=== PATIENT | female | born 1995 | race African-American/Black ===

== ENCOUNTER 2016-12-28 12:17 | Observation (INO) | payer MEDICAID ==
[~2016-12-28] VITALS: Ht 162.6 cm; Wt 50.0 kg
[~2016-12-28 12:17] MED LIST: DEPO150I IM; FERRTAB2
[2016-12-28 12:18] VITALS: BP 104/51; PULSE 129; RESP 20; TEMP 100.8; O2SAT 99
--- NOTE | 2016-12-28 12:43 | PD ---
Physical Exam Time Seen by Provider: 12:41 Narrative 21 y/o female here for evaluation of nausea, weakness, diarrhea, headache, fever for 2-3 days. Vital signs reviewed. Seen at triage desk. Awaiting bed placement. Data Data Last Documented VS Vital Signs Date Time Temp Pulse Resp B/P Pulse Ox O2 Delivery O2 Flow Rate FiO2 12/28/16 12:18 100.8 129 20 104/51 99 Room Air [facility] Medical Record Reviewed: Yes Supervised Visit with MAXWELL: Mitchell Osborn Dec 28, 2016 12:43
[2016-12-28] MEDS ORDERED: KETOROLAC TROMETHAMINE 30 MG/ML (IVP) VIAL IV PUSH ONE (14:30)
[2016-12-28] MEDS ORDERED: SODIUM CHLOR 0.9% 1000 ML INJ 1,000 ML IV ONE ×2 (14:30→15:45)
[2016-12-28] MEDS ORDERED: ACETAMINOPHEN 500 MG CPLT PO ONE (14:45)
[2016-12-28 15:21] LABS: AUTOMATED NEUTROPHIL # 10.4 TH/MM3 (1.8-7.7); BASOPHIL % 0.2 % (0.0-2.0); HEMATOCRIT 38.4 % (35.0-46.0); HEMO FLAGS DIFF FINAL; LYMPH % 10.2 % (9.0-44.0); LYMPHOCYTE # 1.3 TH/MM3 (1.0-4.8); MEAN CELL VOLUME 95.2 FL (80.0-100.0); MEAN CORPUSCULAR HEMOGLOBIN 31.4 PG (27.0-34.0); NEUT % 81.6 % (16.0-70.0); PLATELET COUNT 191 TH/MM3 (150-450); RED BLOOD COUNT 4.03 MIL/MM3 (4.00-5.30); RED CELL DISTRIBUTION WIDTH 13.2 % (11.6-17.2); WHITE BLOOD COUNT 12.7 TH/MM3 (4.0-11.0)
[2016-12-28 15:34] LABS: ANION GAP 9 MEQ/L (5-15); AST (GOT) 10 U/L (15-37); BICARBONATE 23.8 MEQ/L (21.0-32.0); BLOOD UREA NITROGEN 12 MG/DL (7-18); CHLORIDE 100 MEQ/L (98-107); GLOMERULAR FILTRATION RATE 105 ML/MIN (>89); POTASSIUM 3.4 MEQ/L (3.5-5.1); SODIUM (NA) 133 MEQ/L (136-145)
[2016-12-28 15:38] LABS: ALKALINE PHOSPHATASE 60 U/L (45-117); ALT (GPT) 10 U/L (10-53); TOTAL BILIRUBIN ADULT 0.7 MG/DL (0.2-1.0)
[2016-12-28 15:45] VITALS: TEMP 102.7
--- NOTE | 2016-12-28 16:41 | PD ---
HPI Chief Complaint: Cold / Flu Symptoms Time Seen by Provider: 13:52 Travel History International Travel<30 days: No Contact w/Intl Traveler<30days: No Traveled to known affect area: No History of Present Illness HPI Patient is here because she's had headache and significant sore throat for a few days. SHe has also had fevers up to 104. She is having difficulty swallowing but no trismus. She feels like no matter how much she drinks she just can't get enough to drink. She has not had vomiting or diarrhea. No abdominal pain. She is having no otalgia or rhinorrhea or cough. No flank pain. She denies being although she has a son at home who is 8 months old. He is not sick. No dysuria or hematuria. No syncope but she is dizzy. No drug allergies and she is not currently on any medications. No history of seizures or drooling or stridor. No hot potato voice. No difficulty breathing. History Past Medical History Medical History: Denies Significant Hx Cardiovascular Problems: No Chemotherapy: No Cerebrovascular Accident: No Diabetes: No Hearing: No Respiratory: No Vision or Eye Problem: No ?: Not LMP: 11/26/16 : 2 : 1 Past Surgical History Surgical History: No Previous Surgery Hysterectomy: No Social History Tobacco Use in Home: No Alcohol Use: No Tobacco Use: No Substance Use: No Allergies-Medications (Allergen,Severity, Reaction): Coded Allergies: No Known Allergies (Unverified , 12/28/16) Reported Meds & Prescriptions Reported Meds & Active Scripts Active No Active Prescriptions or Reported Medications ROS Except as stated in HPI: all other systems reviewed are Neg Physical Exam Narrative GENERAL APPEARANCE: The patient is a well-developed, well-nourished, child in no acute distress. Tired appearing and dehydrated appearing SKIN: Skin is warm and dry without erythema, swelling or exudate. There is good turgor. No tenting. HEENT: Throat is clear with erythema,no swelling and significant exudate. Mucous membranes are dry Uvula is midline. Airway is patent. The pupils are equal, round and reactive to light. Extraocular motions are intact. No drainage or injection. The ears show bilateral tympanic membranes without erythema, dullness or loss of landmarks. No perforation. NECK: Supple and nontender with full range of motion without discomfort. No meningeal signs. Large and angry anterior cervical lymphadenopathy LUNGS: Equal and bilateral breath sounds without wheezes, rales or rhonchi. CHEST: The chest wall is without retractions or use of accessory muscles. HEART: Has a tachycardic rate and rhythm without murmur, gallops, click or rub. ABDOMEN: Soft, nontender with positive active bowel sounds. No rebound tenderness. Splenomegaly present. No hepatomegaly EXTREMITIES: Without cyanosis, clubbing or edema. Equal 2+ distal pulses and 2 second capillary refill noted. NEUROLOGIC: The patient is alert, aware, and appropriately interactive with parent and with examiner. The patient moves all extremities with normal muscle strength. Normal muscle tone is noted. Normal coordination is noted. Data Data Last Documented VS Vital Signs Date Time Temp Pulse Resp B/P Pulse Ox O2 Delivery O2 Flow Rate FiO2 12/28/16 18:27 98.7 80 20 98/55 100 Room Air Orders C-Reactive Protein (Crp) (12/28/16 14:20) Complete Blood Count With Diff (12/28/16 14:20) Comprehensive Metabolic Panel (12/28/16 14:20) Monoscreen (12/28/16 14:20) Urinalysis - C+S If Indicated (12/28/16 14:20) Ua Includes Microscopic (12/28/16 14:20) Urine Culture (12/28/16 14:20) Blood Culture (12/28/16 14:20) Group A Rapid Strep Screen (12/28/16 14:20) Pediatric Rapid Resp Ag Panel (12/28/16 14:20) Iv Access Insert/Monitor (12/28/16 14:20) Sodium Chlor 0.9% 1000 Ml Inj (Ns 1000 M (12/28/16 14:30) Ketorolac Inj (Toradol Inj) (12/28/16 14:30) Familia-Martin Virus Ab Eval (12/28/16 14:26) Cmv Dna Pcr Quantitative (12/28/16 14:26) Ed Urine Pregnancytest Poc (12/28/16 14:26) Acetaminophen (Tylenol) (12/28/16 14:45) Ct Soft Tiss Neck W Iv Cont (12/28/16 ) Sodium Chlor 0.9% 1000 Ml Inj (Ns 1000 M (12/28/16 15:45) Strep Culture (Group A) (12/28/16 14:35) Clindamycin Inj (Cleocin Inj) (12/28/16 16:45) Iohexol 350 Inj (Omnipaque 350 Inj) (12/28/16 17:54) Dexamethasone Inj (Decadron Inj) (12/28/16 18:45) Admit Order (Ed Use Only) (12/28/16 20:35) Labs Laboratory Tests Test 12/28/16 12/28/16 14:50 16:45 White Blood Count 12.7 TH/MM3 Red Blood Count 4.03 MIL/MM3 Hemoglobin 12.6 GM/DL Hematocrit 38.4 % Mean Corpuscular Volume 95.2 FL Mean Corpuscular Hemoglobin 31.4 PG Mean Corpuscular Hemoglobin 33.0 % Concent Red Cell Distribution Width 13.2 % Platelet Count 191 TH/MM3 Mean Platelet Volume 8.8 FL Neutrophils (%) (Auto) 81.6 % Lymphocytes (%) (Auto) 10.2 % Monocytes (%) (Auto) 8.0 % Eosinophils (%) (Auto) 0.0 % Basophils (%) (Auto) 0.2 % Neutrophils # (Auto) 10.4 TH/MM3 Lymphocytes # (Auto) 1.3 TH/MM3 Monocytes # (Auto) 1.0 TH/MM3 Eosinophils # (Auto) 0.0 TH/MM3 Basophils # (Auto) 0.0 TH/MM3 CBC Comment DIFF FINAL Differential Comment Sodium Level 133 MEQ/L Potassium Level 3.4 MEQ/L Chloride Level 100 MEQ/L Carbon Dioxide Level 23.8 MEQ/L Anion Gap 9 MEQ/L Blood Urea Nitrogen 12 MG/DL Creatinine 0.82 MG/DL Estimat Glomerular Filtration 105 ML/MIN Rate Random Glucose 124 MG/DL Calcium Level 9.0 MG/DL Total Bilirubin 0.7 MG/DL Aspartate Amino Transf 10 U/L (AST/SGOT) Alanine Aminotransferase 10 U/L (ALT/SGPT) Alkaline Phosphatase 60 U/L C-Reactive Protein 13.10 MG/DL Total Protein 9.0 GM/DL Albumin 3.6 GM/DL Monoscreen NEG Familia-Martin Virus Capsid Ag Positive IgG Ab Familia-Martin Virus Capsid Ag Negative IgM Ab Familia-Martin Nuclear Antigen Positive Familia-Martin Virus . Interpretation Urine Color YELLOW Urine Turbidity HAZY Urine pH 6.5 Urine Specific [place] 1.034 Urine Protein 100 mg/dL Urine Glucose (UA) NEG mg/dL Urine Ketones 80 mg/dL Urine Occult Blood NEG Urine Nitrite NEG Urine Bilirubin NEG Urine Urobilinogen LESS THAN 2.0 MG/DL Urine Leukocyte Esterase SMALL Urine RBC 1 /hpf Urine WBC 12 /hpf Urine Squamous Epithelial 9 /hpf Cells Urine Amorphous Sediment RARE Urine Bacteria MANY /hpf Urine Mucus MANY /lpf Microscopic Urinalysis Comment CULTURE INDICATED MDM Medical Decision Making Medical Screen Exam Complete: Yes Emergency Medical Condition: Yes Medical Record Reviewed: Yes Differential Diagnosis Viral pharyngitis Bacterial pharyngitis Tonsillitis Dehydration Mononucleosis EBV versus CMV Narrative Course Patient is here because she is having high fever and significant sore throat for a couple days. On, Exam she was found to have an exudative pharyngitis. Her CRP was very elevated. Rapid strep was negative as well as rapid Gallia. Liver functions were not elevated. Her white count was elevated with a left shift. She was given Toradol and Tylenol for pain. A CT scan of the neck was ordered to rule out peritonsillar abscess. She was given 2 L of normal saline. Care was transferred to . Scripts No Active Prescriptions or Reported Meds Jeanne Karu MD Dec 28, 2016 16:41
[2016-12-28] MEDS ORDERED: CLINDAMYCIN INJ 600 MG in SODIUM CHLORIDE 0.9% INJ 100 ML IV ONE (16:45)
[2016-12-28 17:17] LABS: BACTERIA, URINE MANY /hpf; BLOOD, URINE NEG (NEG); COMMENT (UR) CULTURE INDICATED; CULTURE IF INDICATED CULTURE INDICATED; GLUCOSE,URINE NEG (NEG); KETONE, URINE 80 mg/dL (NEG); MUCUS URINE MANY /lpf (OCC); NITRITE,URINE NEG (NEG); PH, URINE 6.5 (5.0-8.5); SQUAMOUS EPITHELIAL CELL URINE 9 /hpf (0-5); URINE COLOR YELLOW (YELLW/STRAW)
[2016-12-28] MEDS ORDERED: IOHEXOL 350 MG/ML 10 ML VIAL (for RAD DIAG) IV ONE (17:54)
--- NOTE | 2016-12-28 18:25 | RADRPT ---
EXAM DATE/TIME: 12/28/2016 17:45 [place] COMPARISON: No previous studies available for comparison. INDICATIONS : Sore throat, difficulty swallowing, fevers; evaluate for peritonsilar abscess. IV CONTRAST: 75 cc Omnipaque 350 (iohexol) IV RADIATION DOSE: 11.74 CTDIvol (mGy) MEDICAL HISTORY : None SURGICAL HISTORY : None. ENCOUNTER: Initial ACUITY: 1 week PAIN SCALE: 5/10 LOCATION: neck TECHNIQUE: Volumetric scanning of the neck was performed. Using automated exposure control and adjustment of th e mA and/or kV according to patient size, radiation dose was kept as low as reasonably achievable to obtain optimal diagnostic quality images. DICOM format image data is available electronically for r eview and comparison. FINDINGS: NASOPHARYNX: The nasopharyngeal airway has a normal configuration. No mucosal thickening or mass is seen. OROPHARYNX: There is enlargement of the palate seen tonsils bilaterally. They nearly approximate one another in t he midline. There is circumferential wall thickening of the oropharynx. There is narrowing of the lum en of the oropharynx. No discrete abscess observed. A tongue ring is noted. The intrinsic muscles of the tongue are symmetric. LARYNX: The supraglottic, glottic, and infraglottic structures are intact. PARAPHARYNGEAL: The parapharyngeal space is intact. SALIVARY GLANDS: The parotid and submandibular glands are intact. LYMPH NODES: No enlarged or necrotic-appearing nodes. THYROID: Homogeneous enhancement without evidence of nodule. BONES: Unremarkable. CONCLUSION: 1. Significant edema involving the wall of the oropharynx as well as enlargement of the palatine tons ils which nearly approximate one another in the midline. This does narrow the lumen of the oropharynx . No abscess observed. Rober Gordon Jr., MD on December 28, 2016 at 18:18 Board Certified Radiologist. This report was verified electronically.
[2016-12-28 18:27] VITALS: BP 98/55; PULSE 80; RESP 20; TEMP 98.7; O2SAT 100
[2016-12-28] MEDS ORDERED: DEXAMETHASONE SOD PHOS 4 MG/ML VIAL IV PUSH ONE (18:45)
[2016-12-28] MEDS ORDERED: PANTOPRAZOLE SOD 40 MG DELAYED RELEASE TAB PO ONE (21:00)
[2016-12-28] MEDS ORDERED: NALOXONE HCL 0.4 MG/ML AMP IV PRN (21:00)
[2016-12-28] MEDS ORDERED: SODIUM CHLORIDE 0.9% FLUSH 10 ML FLUSH IV FLUSH PRN (21:00)
[2016-12-28] MEDS ORDERED: KETOROLAC TROMETHAMINE 30 MG/ML (IVP) VIAL IV PUSH PRN (21:00)
[2016-12-28] MEDS: SODIUM CHLORIDE 0.9% FLUSH 10 ML FLUSH IV FLUSH SCH (21:08)
[2016-12-28 23:50] VITALS: BP 99/62; PULSE 75; RESP 20; TEMP 98.7; O2SAT 100
[2016-12-29] VITALS (7 sets, daily range): BP systolic 97–110; BP diastolic 53–73; PULSE 62–96; RESP 14–18; TEMP 97.5–98.6; O2SAT 97–100
[2016-12-29] MEDS: DEXAMETHASONE SOD PHOS 4 MG/ML VIAL IV PUSH SCH ×4 (01:00→17:45)
[2016-12-29 01:11] LABS: EBV VCA IgM Negative (Negative)
[2016-12-29] MEDS: CLINDAMYCIN INJ 900 MG in SODIUM CHLORIDE 0.9% INJ 100 ML IV SCH ×4 (01:27→17:46)
--- NOTE | 2016-12-29 02:24 | PD ---
Physical Exam Time Seen by Provider: 18:30 Narrative GENERAL APPEARANCE: The patient is a well-developed, well-nourished child in no acute distress. She is pink, alert and speaking clearly. SKIN: Skin is warm and dry without rashes. There is good turgor. No tenting. HEENT: Throat is mildly erythematous with symmetrically swollen tonsils that are not touching the uvula. Uvula is midline. Patchy white exudate is present on the tonsils. Mucous membranes are moist. Airway is patent. The pupils are equal, round and reactive to light. Extraocular motions are intact. No drainage or injection. Both tympanic membranes are without erythema, dullness or loss of landmarks. No perforation. Mild nasal congestion is present. NECK: Supple and nontender with full range of motion without discomfort. No meningeal signs. LUNGS: Good air entry bilaterally with equal breath sounds without wheezes, rales or rhonchi. CHEST: The chest wall is without retractions or use of accessory muscles. HEART: Regular rate and rhythm without murmur, gallops, click or rub. ABDOMEN: Soft, nondistended, nontender with positive active bowel sounds. EXTREMITIES: Full range of motion of all extremities is present. No cyanosis. Capillary refill is less than 2 seconds. NEUROLOGIC: The patient is alert, aware and appropriately interactive with parent and with examiner. Cranial nerves 2 to 12 are intact. Good tone. Data Data Last Documented VS Vital Signs Date Time Temp Pulse Resp B/P Pulse Ox O2 Delivery O2 Flow Rate FiO2 12/28/16 18:27 98.7 80 20 98/55 100 Room Air Orders C-Reactive Protein (Crp) (12/28/16 14:20) Complete Blood Count With Diff (12/28/16 14:20) Comprehensive Metabolic Panel (12/28/16 14:20) Monoscreen (12/28/16 14:20) Urinalysis - C+S If Indicated (12/28/16 14:20) Ua Includes Microscopic (12/28/16 14:20) Urine Culture (12/28/16 14:20) Blood Culture (12/28/16 14:20) Group A Rapid Strep Screen (12/28/16 14:20) Pediatric Rapid Resp Ag Panel (12/28/16 14:20) Iv Access Insert/Monitor (12/28/16 14:20) Sodium Chlor 0.9% 1000 Ml Inj (Ns 1000 M (12/28/16 14:30) Ketorolac Inj (Toradol Inj) (12/28/16 14:30) Familia-Martin Virus Ab Eval (12/28/16 14:26) Cmv Dna Pcr Quantitative (12/28/16 14:26) Ed Urine Pregnancytest Poc (12/28/16 14:26) Acetaminophen (Tylenol) (12/28/16 14:45) Ct Soft Tiss Neck W Iv Cont (12/28/16 ) Sodium Chlor 0.9% 1000 Ml Inj (Ns 1000 M (12/28/16 15:45) Strep Culture (Group A) (12/28/16 14:35) Clindamycin Inj (Cleocin Inj) (12/28/16 16:45) Iohexol 350 Inj (Omnipaque 350 Inj) (12/28/16 17:54) Dexamethasone Inj (Decadron Inj) (12/28/16 18:45) Admit Order (Ed Use Only) (12/28/16 20:35) Labs Laboratory Tests Test 12/28/16 12/28/16 14:50 16:45 White Blood Count 12.7 TH/MM3 Red Blood Count 4.03 MIL/MM3 Hemoglobin 12.6 GM/DL Hematocrit 38.4 % Mean Corpuscular Volume 95.2 FL Mean Corpuscular Hemoglobin 31.4 PG Mean Corpuscular Hemoglobin 33.0 % Concent Red Cell Distribution Width 13.2 % Platelet Count 191 TH/MM3 Mean Platelet Volume 8.8 FL Neutrophils (%) (Auto) 81.6 % Lymphocytes (%) (Auto) 10.2 % Monocytes (%) (Auto) 8.0 % Eosinophils (%) (Auto) 0.0 % Basophils (%) (Auto) 0.2 % Neutrophils # (Auto) 10.4 TH/MM3 Lymphocytes # (Auto) 1.3 TH/MM3 Monocytes # (Auto) 1.0 TH/MM3 Eosinophils # (Auto) 0.0 TH/MM3 Basophils # (Auto) 0.0 TH/MM3 CBC Comment DIFF FINAL Differential Comment Sodium Level 133 MEQ/L Potassium Level 3.4 MEQ/L Chloride Level 100 MEQ/L Carbon Dioxide Level 23.8 MEQ/L Anion Gap 9 MEQ/L Blood Urea Nitrogen 12 MG/DL Creatinine 0.82 MG/DL Estimat Glomerular Filtration 105 ML/MIN Rate Random Glucose 124 MG/DL Calcium Level 9.0 MG/DL Total Bilirubin 0.7 MG/DL Aspartate Amino Transf 10 U/L (AST/SGOT) Alanine Aminotransferase 10 U/L (ALT/SGPT) Alkaline Phosphatase 60 U/L C-Reactive Protein 13.10 MG/DL Total Protein 9.0 GM/DL Albumin 3.6 GM/DL Monoscreen NEG Familia-Martin Virus Capsid Ag Positive IgG Ab Familia-Martin Virus Capsid Ag Negative IgM Ab Familia-Martin Nuclear Antigen Positive Familia-Martin Virus . Interpretation Urine Color YELLOW Urine Turbidity HAZY Urine pH 6.5 Urine Specific [place] 1.034 Urine Protein 100 mg/dL Urine Glucose (UA) NEG mg/dL Urine Ketones 80 mg/dL Urine Occult Blood NEG Urine Nitrite NEG Urine Bilirubin NEG Urine Urobilinogen LESS THAN 2.0 MG/DL Urine Leukocyte Esterase SMALL Urine RBC 1 /hpf Urine WBC 12 /hpf Urine Squamous Epithelial 9 /hpf Cells Urine Amorphous Sediment RARE Urine Bacteria MANY /hpf Urine Mucus MANY /lpf Microscopic Urinalysis Comment CULTURE INDICATED MDM Medical Record Reviewed: Yes Supervised Visit with MAXWELL: No Interpretation(s) Last Impressions Neck CT 12/28/16 0000 Signed Impressions: Service Date/Time: , December 28, 2016 17:45 - CONCLUSION: 1. Significant edema involving the wall of the oropharynx as well as enlargement of the palatine tonsils which nearly approximate one another in the midline. This does narrow the lumen of the oropharynx. No abscess observed. Rober Gordon Jr., MD WBC count is mildly elevated. CRP is elevated. Blood culture is pending. Rapid group A strep antigen is negative. [place] screen is negative. RSV and influenza antigens are negative. Narrative Course Patient was signed out to me by Dr. Kaur. Please refer to her note for history and initial ED course. Dr. Kaur ordered CT scan of the neck and asked that I follow the results. CT scan shows no obvious abscess but does show significant edema with narrowing of the airway. Due to finding, patient is being admitted to hospital for monitoring and further treatment. She was given clindamycin by Dr. Kaur. I ordered a dose of Decadron. Patient was given normal saline bolus and Toradol by Dr. Kaur. She does feel better after the interventions. I spoke with admitting attending Dr. Hall who has accepted the admission to observation status. Patient is comfortable with plan to admit. Physician Communication Physician Communication See above Diagnosis Primary Impression: Tonsillitis Scripts No Active Prescriptions or Reported Meds Mckayla Shearer MD Dec 29, 2016 02:24
[2016-12-29] MEDS: PANTOPRAZOLE SOD 40 MG DELAYED RELEASE TAB PO SCH (08:20)
[2016-12-29] MEDS: SODIUM CHLORIDE 0.9% FLUSH 10 ML FLUSH IV FLUSH SCH ×2 (08:21→22:24)
[2016-12-29] MEDS: LACTOBACILLUS ACIDOPHILUS TAB PO SCH ×3 (08:21→17:45)
--- NOTE | 2016-12-29 10:49 | HHI.HP ---
HPI Service [facility] Primary Care Physician No Primary Care Physician Admission Diagnosis SEVERE TONSILLITIS Diagnoses: Chief Complaint: Tonsillitis Travel History International Travel<30 Days: No Contact w/Intl Traveler <30 Da: No Traveled to Known Affected Are: No Sepsis Criteria SIRS Criteria (2 or more): Temp > 100.9 or < 96.8, Heart rate over 90, WBC > 48375, < 4000 or > 10% bands Sepsis Criteria (SIRS+source): Infect source susp/known Criteria Outcome: Meets sepsis criteria History of Present Illness Written by Jay Szymanski, acting as scribe for Dr. Garcia on 12/29/16 at 10:30. This note was transcribed by YARA Ashraf. I, Dr. Yg Garcia personally performed the history, physical exam, and medical decision making; and confirmed the accuracy of the information in the transcribed note. Authenticated by Dr. Yg Garcia on 12/29/16 at 17:08. 21-year-old female with a past history of recurrent tonsillar infections who presented for sore throat. Patient states that for about the past 3 or 4 days she's had a bad cold and flu. She states that about 2 days ago she developed sore throat. She has had problems with sore throat in the past, told she would have recurrent infections if she did not have her tonsils removed. She states that she's been having hot and cold sweats. She had a fever of 104 at home. She states that she's had constitutional symptoms which is weakness, lightheadedness, headache, nausea. She denies any cough, vomiting, or shortness of breath. She hasn't had much appetite, but has been able to swallow okay. She reports feeling better overnight since starting on antibiotics. Review of Systems Except as stated in HPI: all other systems reviewed are Neg Past Family Social History Past Medical History History of tonsillitis in the past Past Surgical History None Allergies: Coded Allergies: No Known Allergies (Unverified , 12/28/16) Active Ordered Medications Current Medications Medications (Trade) Dose Ordered Sig/Brandyn Route Start Time Stop Time Status Last Admin (NS Flush) 2 ml UNSCH PRN IV FLUSH 12/28/16 21:00 (NS Flush) 2 ml BID IV FLUSH 12/28/16 21:00 12/29/16 08:21 (Narcan Inj) 0.4 mg UNSCH PRN IV 12/28/16 21:00 (Decadron Inj) 4 mg Q6H IV PUSH 12/29/16 01:00 12/29/16 06:33 Pantoprazole Sodium 40 mg 40 mg DAILY PO 12/29/16 09:00 12/29/16 08:20 (Cleocin Inj/NS Inj) 106 ml @ 212 mls/hr Q6H IV 12/29/16 00:00 12/29/16 08:21 (Lactinex) 1 tab TID PO 12/29/16 09:00 12/29/16 08:21 (Toradol Inj) 15 mg Q6H PRN IV PUSH 12/28/16 21:00 01/02/17 20:59 Family History Mother has high blood pressure Social History Rare alcohol use, once or twice a month Denies any tobacco or drug use Physical Exam Vital Signs Vital Signs Date Time Temp Pulse Resp B/P Pulse Ox O2 Delivery O2 Flow Rate FiO2 12/29/16 08:47 97.7 66 16 97/53 99 12/29/16 04:30 63 12/29/16 03:36 98.6 71 18 107/71 100 12/28/16 23:50 98.7 75 20 99/62 100 12/28/16 18:27 98.7 80 20 98/55 100 Room Air 12/28/16 15:45 102.7 12/28/16 15:30 20 Room Air 12/28/16 12:18 100.8 129 20 104/51 99 Room Air Physical Exam GENERAL: Well-developed well-nourished. In no acute distress. SKIN: Warm and dry. No lesions noted. HEENT: Normocephalic. Pupils equal and round. Tonsillar swelling with exudates , right worse than left. Airway patent. CARDIOVASCULAR: Regular rate and rhythm. No murmur appreciated. RESPIRATORY: No accessory muscle use. Clear to auscultation. Breath sounds equal bilaterally. GASTROINTESTINAL: Abdomen soft, non-tender, nondistended. Bowel sounds x4. MUSCULOSKELETAL: No obvious deformities. No clubbing or cyanosis. No edema. NEUROLOGICAL: Awake and alert. No focal neurological deficits. Moves upper and lower extremities spontaneously. Normal speech. PSYCHIATRIC: Appropriate mood and affect; insight and judgment normal. Laboratory Laboratory Tests Test 12/28/16 12/28/16 14:50 16:45 White Blood Count 12.7 Red Blood Count 4.03 Hemoglobin 12.6 Hematocrit 38.4 Mean Corpuscular Volume 95.2 Mean Corpuscular Hemoglobin 31.4 Mean Corpuscular Hemoglobin 33.0 Concent Red Cell Distribution Width 13.2 Platelet Count 191 Mean Platelet Volume 8.8 Neutrophils (%) (Auto) 81.6 Lymphocytes (%) (Auto) 10.2 Monocytes (%) (Auto) 8.0 Eosinophils (%) (Auto) 0.0 Basophils (%) (Auto) 0.2 Neutrophils # (Auto) 10.4 Lymphocytes # (Auto) 1.3 Monocytes # (Auto) 1.0 Eosinophils # (Auto) 0.0 Basophils # (Auto) 0.0 CBC Comment DIFF FINAL Differential Comment Sodium Level 133 Potassium Level 3.4 Chloride Level 100 Carbon Dioxide Level 23.8 Anion Gap 9 Blood Urea Nitrogen 12 Creatinine 0.82 Estimat Glomerular Filtration 105 Rate Random Glucose 124 Calcium Level 9.0 Total Bilirubin 0.7 Aspartate Amino Transf 10 (AST/SGOT) Alanine Aminotransferase 10 (ALT/SGPT) Alkaline Phosphatase 60 C-Reactive Protein 13.10 Total Protein 9.0 Albumin 3.6 Monoscreen NEG Familia-Martin Virus Capsid Ag Positive IgG Ab Familia-Martin Virus Capsid Ag Negative IgM Ab Familia-Martin Nuclear Antigen Positive Familia-Martin Virus . Interpretation Urine Color YELLOW Urine Turbidity HAZY Urine pH 6.5 Urine Specific [place] 1.034 Urine Protein 100 Urine Glucose (UA) NEG Urine Ketones 80 Urine Occult Blood NEG Urine Nitrite NEG Urine Bilirubin NEG Urine Urobilinogen LESS THAN 2.0 Urine Leukocyte Esterase SMALL Urine RBC 1 Urine WBC 12 Urine Squamous Epithelial 9 Cells Urine Amorphous Sediment RARE Urine Bacteria MANY Urine Mucus MANY Microscopic Urinalysis Comment CULTURE INDICATED Date/Time Procedure Status Source Growth 12/28/16 16:45 Urine Culture Received Urine Clean Catch Pending 12/28/16 16:45 Cancelled Urine Clean Catch 12/28/16 14:50 Influenza Types A,B Antigen (MEHRDAD) - Final Complete Nasal Aspirate NEGATIVE FOR FLU A AND B ANTIGEN.... 12/28/16 14:50 Respiratory Syncytial Virus Ag - Final Complete Nasal Aspirate NEGATIVE FOR RSV ANTIGEN... 12/28/16 14:50 Aerobic Blood Culture Received Blood Line Pending 12/28/16 14:50 Anaerobic Blood Culture Received Blood Line Pending 12/28/16 14:35 Group A Streptococcus Screen (MEHRDAD) - Final Complete Throat 12/28/16 14:35 Group A Streptococcus Screen Received Throat Pending Result Diagram: 12/28/16 1450 12/28/16 1450 Imaging Last Impressions Neck CT 12/28/16 0000 Signed Impressions: Service Date/Time: , December 28, 2016 17:45 - CONCLUSION: 1. Significant edema involving the wall of the oropharynx as well as enlargement of the palatine tonsils which nearly approximate one another in the midline. This does narrow the lumen of the oropharynx. No abscess observed. Rober Gordon Jr., MD Assessment and Plan Assessment and Plan 21-year-old female admitted for severe tonsillitis Tonsillitis with sepsis: No airway compromise. Improving. Reviewed: Neck CT showed significant edema involving the wall of the oropharynx as well as enlargement of the palatine tonsils which nearly approximating one another in the midline. Influenza negative. RSV negative. Group A strep screen negative. [place] screen negative. EBV positive. -Temperature 102.7 at admission, afebrile overnight. -CBC 12.7, follow-up labs today. -Soft diet -Continue IV clindamycin, transition to oral at discharge Hyperkalemia: Potassium 3.4. Follow-up labs today including magnesium. Abnormal UA: With multiple squamous epithelial cells, appears to be contaminated. Follow-up urine culture. Continue antibiotics as above. Full code. Discussed Condition With Patient Jay Szymanski Dec 29, 2016 10:49 Connie Garcia DO Dec 29, 2016 17:11
[2016-12-29 20:48] LABS: AUTOMATED NEUTROPHIL # 14.4 TH/MM3 (1.8-7.7); HEMATOCRIT 32.9 % (35.0-46.0); HEMO FLAGS DIFF FINAL; LYMPH % 8.6 % (9.0-44.0); LYMPHOCYTE # 1.4 TH/MM3 (1.0-4.8); MEAN CELL VOLUME 93.2 FL (80.0-100.0); MEAN CORPUSCULAR HEMOGLOBIN 32.7 PG (27.0-34.0); MEAN CORPUSCULAR HGB CONC 35.1 % (32.0-36.0); MONO % 2.1 % (0.0-8.0); NEUT % 89.3 % (16.0-70.0); PLATELET COUNT 209 TH/MM3 (150-450); RED BLOOD COUNT 3.53 MIL/MM3 (4.00-5.30); RED CELL DISTRIBUTION WIDTH 13.5 % (11.6-17.2); WHITE BLOOD COUNT 16.2 TH/MM3 (4.0-11.0)
[2016-12-29 21:06] LABS: POTASSIUM 3.4 MEQ/L (3.5-5.1)
[2016-12-30] MEDS: DEXAMETHASONE SOD PHOS 4 MG/ML VIAL IV PUSH SCH ×2 (01:00→06:26)
[2016-12-30] MEDS: CLINDAMYCIN INJ 900 MG in SODIUM CHLORIDE 0.9% INJ 100 ML IV SCH ×2 (01:21→06:26)
[2016-12-30] MEDS ORDERED: ZOLPIDEM TARTRATE 5 MG TAB PO ONE (03:00)
[2016-12-30 04:22] VITALS: BP 115/75; PULSE 88; RESP 18; TEMP 97.6; O2SAT 96
[2016-12-30 08:47] VITALS: BP 88/56; PULSE 50; TEMP 96.8; O2SAT 100
[2016-12-30] MEDS: PANTOPRAZOLE SOD 40 MG DELAYED RELEASE TAB PO SCH (08:52)
[2016-12-30] MEDS: LACTOBACILLUS ACIDOPHILUS TAB PO SCH ×2 (08:52→12:24)
[2016-12-30] MEDS: SODIUM CHLORIDE 0.9% FLUSH 10 ML FLUSH IV FLUSH SCH (08:52)
--- NOTE | 2016-12-30 09:23 | HHI.PR ---
Subjective Remarks Follow up for acute pharyngitis. Patient is currently doing well. No acute concerns. Denies any chest pain, shortness of breath, fever, chills. Denies any dysuria, hematuria. Objective Vitals Vital Signs Date Time Temp Pulse Resp B/P Pulse Ox O2 Delivery O2 Flow Rate FiO2 12/30/16 08:47 96.8 50 88/56 100 12/30/16 04:22 97.6 88 18 115/75 96 12/29/16 23:29 97.7 62 18 110/65 98 12/29/16 19:56 98.0 67 18 102/55 98 12/29/16 15:17 97.5 65 14 99/55 100 12/29/16 11:24 98.0 96 16 108/73 97 Result Diagram: 12/29/16190212/29/161902 Imaging Last Impressions Neck CT 12/28/16 0000 Signed Impressions: Service Date/Time: December 17:45 - CONCLUSION: 1. Significant edema involving the wall of the oropharynx as well as enlargement of the palatine tonsils which nearly approximate one another in the midline. This does narrow the lumen of the oropharynx. No abscess observed. Rober Gordon Jr., MD Objective Remarks GENERAL: AOX3, NAD. SKIN: Warm and dry. HEAD: Normocephalic. EYES: No scleral icterus. No injection or drainage. NECK: Supple, trachea midline. No JVD or lymphadenopathy. CARDIOVASCULAR: Regular rate and rhythm without murmurs, gallops, or rubs. RESPIRATORY: Breath sounds equal bilaterally. No accessory muscle use. Mild exudates in the posterior pharynx. GASTROINTESTINAL: Abdomen soft, non-tender, nondistended. MUSCULOSKELETAL: No cyanosis, or edema. BACK: Nontender without obvious deformity. No CVA tenderness. Procedures None. A/P Problem List: (1) Pharyngitis, acute ICD Code: J02.9 Status: Acute Assessment and Plan 21-year-old female admitted for sore throat. Strep A negative. - Acute Pharyngitis likely due to EBV. - EBV antigen, IgM positive. - Strep A strep negative. - Patient received Dexamethasone as well as Clindamycin for suspected bacterial pharyngitis. - Will discontinue Clindamycin. - Urine cx grew E. Coli. - Will continue Cephalexin PO for 5 days upon discharge. Full code. Patient is encouraged to follow up with PCP. Discharge patient to home Condition on discharge: Improved Regular Diet as tolerated Ad Hortencia activity Rx written:- Cephalexin 500mg Q6hrs X 5 days. Follow-up with primary care physician within one week. Connie Garcia DO Dec 30, 2016 09:23
[2016-12-30 11:36] VITALS: BP 90/52; PULSE 55; TEMP 98.4; O2SAT 99
[2016-12-30] MEDS ORDERED: CEPHALEXIN MONOHYDRATE 500 MG CAP PO SCH (12:00)
[2016-12-30] MEDS ORDERED: CEPH500C PO (12:28)
== END 2016-12-30 13:40 | disposition home or self-care (01) ==
LOC: NEPA 12:17 → NEDA 20:39 → NEPHCDU 22:00 → NEDA 22:18
PROVIDERS: ADMIT Hospitalist; ATTEND Hospitalist
DX: J03.90 Acute tonsillitis, unspecified (principal); E87.5 Hyperkalemia; R82.90 Unspecified abnormal findings in urine; B96.20 Unspecified Escherichia coli [E. coli] as the cause of diseases classified elsewhere
CPT/HCPCS: 70491; 80048; 80053; 81001; 83735; 84703; 85025; 86140; 86308; 86664; 86665; 87040; 87077; 87081; 87086; 87186; 87497; 87804; 87807; 87880; 96361; 96365; 96375; 99285; G0378; J1100; J1885; J7030; Q9967

== ENCOUNTER 2017-01-26 08:01 | Emergency (ER) | payer MEDICAID ==
[~2017-01-26] VITALS: Ht 165.1 cm; Wt 50.0 kg
[~2017-01-26 08:01] MED LIST changes: +CEPH500C PO; -DEPO150I IM; -FERRTAB2
[2017-01-26 08:03] VITALS: BP 112/67; PULSE 134; RESP 20; TEMP 103.1; O2SAT 99
[2017-01-26 08:10] VITALS: BP 114/61; PULSE 115; RESP 16; TEMP 103; O2SAT 96
[2017-01-26 08:17] VITALS: BP 114/61; PULSE 118; RESP 17; TEMP 103; O2SAT 96
[2017-01-26] MEDS ORDERED: ACETAMINOPHEN 500 MG CPLT PO ONE (08:45)
[2017-01-26] MEDS ORDERED: IBUPROFEN 600 MG TAB PO ONE (08:45)
[2017-01-26] MEDS ORDERED: LIDOCAINE HCL 1% PF 30 ML VIAL XX ONE (08:45)
[2017-01-26] MEDS ORDERED: LIDOCAINE VISCOUS 2% SOLN 15 ML UDC PO ONE (08:45)
[2017-01-26] MEDS ORDERED: SODIUM CHLOR 0.9% 1000 ML INJ 1,000 ML IV ONE (08:45)
[2017-01-26] MEDS ORDERED: ALUMINUM/MAGNESIUM/SIMETH 30 ML CUP PO ONE (08:45)
[2017-01-26] MEDS ORDERED: cefTRIAXone INJ 1,000 MG in SODIUM CHLORIDE 0.9% INJ 100 ML IV ONE (08:45)
--- NOTE | 2017-01-26 08:46 | PD ---
HPI Chief Complaint: ENT Complaint Time Seen by Provider: 08:20 Travel History International Travel<30 days: No Contact w/Intl Traveler<30days: No Traveled to known affect area: No History of Present Illness HPI The patient was seen and examined in the presence of the nurse. This patient complains of sore throat and fever. Duration 2 days. Severity is moderate. Patient has long-standing history of innumerable throat infections. Patient has never seen an ENT physician and doesn't go to primary care. Just comes to the emergency room whenever she gets a throat infection. Denies other medical problems. No alleviating factors. She denies cough or shortness of breath. She has pain when swallowing. PFSH Past Medical History Medical History: Denies Significant Hx Hx Anticoagulant Therapy: No Cancer: No Cardiovascular Problems: No Chemotherapy: No Cerebrovascular Accident: No Diabetes: No Diminished Hearing: No Endocrine: No Genitourinary: No Immune Disorder: No Musculoskeletal: No Neurologic: No Psychiatric: No Reproductive: No Respiratory: No Tetanus Vaccination: < 5 Years ?: Not LMP: 12/17/16 : 2 Para: 1 : 1 Past Surgical History Surgical History: No Previous Surgery Hysterectomy: No Social History Alcohol Use: Yes (SOCIAL ) Tobacco Use: No Substance Use: No Allergies-Medications (Allergen,Severity, Reaction): Coded Allergies: No Known Allergies (Unverified , 01/26/17) Reported Meds & Prescriptions Reported Meds & Active Scripts Active No Active Prescriptions or Reported Medications Review of Systems General / Constitutional: Positive: Fever Eyes: No: Visual changes HENT: Positive: Sore Throat, No: Headaches Cardiovascular: Positive: Tachycardia, No: Chest Pain or Discomfort Respiratory: No: Shortness of Breath Gastrointestinal: No: Abdominal Pain Genitourinary: No: Dysuria Musculoskeletal: No: Pain Skin: No Rash Neurologic: No: Weakness Psychiatric: No: Depression Endocrine: No: Polydipsia Hematologic/Lymphatic: No: Easy Bruising Physical Exam Narrative GENERAL: Well-nourished, well-developed patient with fever and tachycardia and sore throat SKIN: Focused skin assessment reveals no rash and nodules. Skin is Warm and dry. HEAD: Atraumatic. Normocephalic. EYES: Pupils equal and round. No scleral icterus. No injection or drainage. ENT: No nasal bleeding or discharge. Mucous membranes pink and moist. Oral cavity examination reveals midline uvula. Patient does not of exudate on tonsils. Has open airway. Minor erythema present. NECK: Trachea midline. No JVD. Bilateral submandibular lymphadenopathy. No meningeal signs CARDIOVASCULAR: Regular rate and rhythm. No murmur appreciated. Tachycardic at 120 RESPIRATORY: No accessory muscle use. Clear to auscultation. Breath sounds equal bilaterally. GASTROINTESTINAL: Abdomen soft, non-tender, nondistended. Hepatic and splenic margins not palpable. MUSCULOSKELETAL: No obvious deformities. No clubbing. No cyanosis. No edema. NEUROLOGICAL: Awake and alert. No obvious cranial nerve deficits. Motor grossly within normal limits. Normal speech. PSYCHIATRIC: Appropriate mood and affect; insight and judgment normal. Data Data Last Documented VS Vital Signs Date Time Temp Pulse Resp B/P (MAP) Pulse Ox O2 Delivery O2 Flow Rate FiO2 01/26/17 10:55 99.5 84 16 117/53 (74) 96 Room Air Orders Orders Acetaminophen (Tylenol) (01/26/17 08:45) Ibuprofen (Motrin) (01/26/17 08:45) Al-Mag Hy-Si 40-40-4 Mg/Ml Liq (Mag-Al P (01/26/17 08:45) Lidocaine 2% Viscous (Xylocaine 2% Visco (01/26/17 08:45) Ceftriaxone Inj (Rocephin Inj) (01/26/17 08:45) Lidocaine Pf 1% Inj (Xylocaine-Mpf 1% In (01/26/17 08:45) Sodium Chlor 0.9% 1000 Ml Inj (Ns 1000 M (01/26/17 08:45) Ceftriaxone Inj (Rocephin Inj) (01/26/17 08:45) Complete Blood Count With Diff (01/26/17 08:36) Basic Metabolic Panel (Bmp) (01/26/17 08:36) Group A Rapid Strep Screen (01/26/17 08:46) Strep Culture (Group A) (01/26/17 08:49) Labs Laboratory Tests Test 01/26/17 08:49 White Blood Count 12.8 TH/MM3 Red Blood Count 4.11 MIL/MM3 Hemoglobin 12.8 GM/DL Hematocrit 38.9 % Mean Corpuscular Volume 94.6 FL Mean Corpuscular Hemoglobin 31.1 PG Mean Corpuscular Hemoglobin Concent 32.9 % Red Cell Distribution Width 14.1 % Platelet Count 166 TH/MM3 Mean Platelet Volume 8.4 FL Neutrophils (%) (Auto) 80.9 % Lymphocytes (%) (Auto) 8.8 % Monocytes (%) (Auto) 10.1 % Eosinophils (%) (Auto) 0.0 % Basophils (%) (Auto) 0.2 % Neutrophils # (Auto) 10.4 TH/MM3 Lymphocytes # (Auto) 1.1 TH/MM3 Monocytes # (Auto) 1.3 TH/MM3 Eosinophils # (Auto) 0.0 TH/MM3 Basophils # (Auto) 0.0 TH/MM3 CBC Comment DIFF FINAL Differential Comment Blood Urea Nitrogen 10 MG/DL Creatinine 0.78 MG/DL Random Glucose 105 MG/DL Calcium Level 7.9 MG/DL Sodium Level 135 MEQ/L Potassium Level 3.7 MEQ/L Chloride Level 104 MEQ/L Carbon Dioxide Level 22.1 MEQ/L Anion Gap 9 MEQ/L Estimat Glomerular Filtration Rate 112 ML/MIN MDM Medical Decision Making Medical Screen Exam Complete: Yes Emergency Medical Condition: Yes Medical Record Reviewed: Yes Differential Diagnosis Pharyngitis, sepsis, SIRS Narrative Course I have reviewed the patient's electronic medical record. Reviewed her admission from 1 month ago for the same thing IV placed I gave her 1 L normal saline IV bolus I gave her dose of Tylenol and Motrin for temperature 103 I gave her dose of viscous lidocaine and Maalox for symptom relief CBC shows minimal leukocytosis Metabolic profile is normal Patient meets SIRS criteria but I don't think she is septic. She gets frequent attacks of pharyngitis Should follow-up with ENT to discuss tonsillectomy I gave her 1 g Rocephin IV Strep screen is negative On reassessment her temperature is down to 99.5 and her heart rate is in the 80s She is well-hydrated and stable for outpatient follow-up Did write one week of penicillin Sepsis Criteria SIRS Criteria (2 or more): Temp > 100.9 or < 96.8, Heart rate over 90 Sepsis Criteria (SIRS+source): Infect source susp/known Criteria Outcome: Meets SIRS criteria Diagnosis Primary Impression: Pharyngitis, acute Qualified Codes: J02.9 - Acute pharyngitis, unspecified Additional Impression: SIRS (systemic inflammatory response syndrome) Additional Instructions: The patient was advised to follow up with ENT physician and return if they worsen. Med/Other Pt SpecificInfo: Prescription(s) given Scripts Penicillin V Potassium (Penicillin V Potassium) 500 Mg Tab 500 MG PO Q6H for Infection, #28 TAB 0 Refills Prov: Marco Antonio Gordon MD 01/26/17 Disposition: 01 DISCHARGE HOME Condition: Stable Marco Antonio Gordon MD Jan 26, 2017 08:46
[2017-01-26 09:01] LABS: AUTOMATED NEUTROPHIL # 10.4 TH/MM3 (1.8-7.7); BASOPHIL % 0.2 % (0.0-2.0); HEMATOCRIT 38.9 % (35.0-46.0); HEMO FLAGS DIFF FINAL; LYMPH % 8.8 % (9.0-44.0); LYMPHOCYTE # 1.1 TH/MM3 (1.0-4.8); MEAN CELL VOLUME 94.6 FL (80.0-100.0); MEAN CORPUSCULAR HEMOGLOBIN 31.1 PG (27.0-34.0); MEAN CORPUSCULAR HGB CONC 32.9 % (32.0-36.0); MONO % 10.1 % (0.0-8.0); NEUT % 80.9 % (16.0-70.0); PLATELET COUNT 166 TH/MM3 (150-450); RED BLOOD COUNT 4.11 MIL/MM3 (4.00-5.30); RED CELL DISTRIBUTION WIDTH 14.1 % (11.6-17.2); WHITE BLOOD COUNT 12.8 TH/MM3 (4.0-11.0)
[2017-01-26 09:46] LABS: BICARBONATE 22.1 MEQ/L (21.0-32.0); POTASSIUM 3.7 MEQ/L (3.5-5.1)
[2017-01-26 10:55] VITALS: BP 117/53; PULSE 84; RESP 16; TEMP 99.5; O2SAT 96
[2017-01-26] MEDS ORDERED: PENI500T PO (12:24)
== END 2017-01-26 12:50 | disposition home or self-care (01) ==
LOC: NEPC 08:01
DX: J02.9 Acute pharyngitis, unspecified (principal); R65.10 Systemic inflammatory response syndrome (SIRS) of non-infectious origin without acute organ dysfunction; D72.829 Elevated white blood cell count, unspecified; R00.0 Tachycardia, unspecified
CPT/HCPCS: 80048; 85025; 87081; 87880; 96372; 96374; 99284; J0696; J7030

== ENCOUNTER 2017-01-26 19:51 | Emergency (ER) | payer SELFPAY ==
[~2017-01-26] VITALS: Ht 165.1 cm; Wt 50.0 kg
[~2017-01-26 19:51] MED LIST changes: +PENI500T PO
[2017-01-26 19:53] VITALS: BP 106/57; PULSE 117; RESP 16; TEMP 102.8; O2SAT 99
== END 2017-01-26 22:11 | disposition left against medical advice (07) ==
LOC: NED 19:51
DX: R50.9 Fever, unspecified (principal); Z53.21 Procedure and treatment not carried out due to patient leaving prior to being seen by health care provider
CPT/HCPCS: 99281

== ENCOUNTER 2017-11-23 08:36 | Emergency (ER) | payer MEDICAID ==
[~2017-11-23] VITALS: Ht 162.6 cm; Wt 50.0 kg
[~2017-11-23 08:36] MED LIST changes: -CEPH500C PO
[2017-11-23 08:37] VITALS: BP 118/69; PULSE 101; RESP 16; TEMP 101.8; O2SAT 99
[2017-11-23] MEDS ORDERED: predniSONE 20 MG TAB PO ONE (09:00)
[2017-11-23] MEDS ORDERED: ALUMINUM/MAGNESIUM/SIMETH 30 ML CUP PO ONE (09:00)
[2017-11-23] MEDS ORDERED: AMOXICILLIN/CLAVULANATE K 875 MG TAB PO ONE (09:00)
[2017-11-23] MEDS ORDERED: ACETAMINOPHEN 500 MG CPLT PO ONE (09:00)
[2017-11-23] MEDS ORDERED: LIDOCAINE VISCOUS 2% SOLN 15 ML UDC PO ONE (09:00)
--- NOTE | 2017-11-23 09:05 | PD ---
HPI Chief Complaint: ENT Complaint Time Seen by Provider: 08:53 Travel History International Travel<30 days: No Contact w/Intl Traveler<30days: No Traveled to known affect area: No History of Present Illness HPI 22-year-old -[place] female presents emergency department with 3 day history of worsening tonsillitis. Pain is somewhat worse on the right than the left. Patient states he is unable to eat this morning secondary to the pain. She is having no trouble swallowing her saliva. She denies nausea, vomiting, or other significant symptoms. She has no ear pain or headache. She is noted to have a fever of 101.8. She has no known drug allergies. PFSH Past Medical History Medical History: Denies Significant Hx Hx Anticoagulant Therapy: No Cancer: No Cardiovascular Problems: No Chemotherapy: No Cerebrovascular Accident: No Diabetes: No Diminished Hearing: No Endocrine: No Genitourinary: No Immune Disorder: No Musculoskeletal: No Neurologic: No Psychiatric: No Reproductive: No Respiratory: No ?: Not LMP: 11/22/17 : 2 Para: 1 : 1 Past Surgical History Surgical History: No Previous Surgery Hysterectomy: No Other Surgery: No Social History Alcohol Use: No Tobacco Use: No Substance Use: No Allergies-Medications (Allergen,Severity, Reaction): Coded Allergies: No Known Allergies (Unverified Adverse Reaction, Unknown, 11/23/17) Reported Meds & Prescriptions Reported Meds & Active Scripts Active No Active Prescriptions or Reported Medications Review of Systems Except as stated in HPI: all other systems reviewed are Neg General / Constitutional: Positive: Fever, Chills Eyes: No: Visual changes HENT: Positive: Sore Throat, Masses (Lymphadenopathy), No: Headaches, Vertigo, Lightheadedness, Rhinitis, Rhinorrhea, Congestion, Nosebleed, Neck Stiffness, Neck Pain, Dental Difficulties, Earache Cardiovascular: No: Chest Pain or Discomfort Respiratory: No: Shortness of Breath Gastrointestinal: No: Abdominal Pain Genitourinary: No: Dysuria Musculoskeletal: No: Pain Skin: No Rash Neurologic: No: Weakness Psychiatric: No: Depression Endocrine: No: Polydipsia Hematologic/Lymphatic: No: Easy Bruising Physical Exam Narrative GENERAL: Patient appears in mild distress. SKIN: Warm and dry. Normal color. Normal turgor. HEAD: Atraumatic. Normocephalic. EYES: Pupils equal and round. No scleral icterus. No injection or drainage. ENT: No nasal bleeding or discharge. Mucous membranes pink and moist. TMs are clear bilaterally. Patient has bilateral swollen erythematous tonsils with yellowish pineda exudate. Right somewhat greater than left. Uvula is midline. Breath is fetid. NECK: Trachea midline. Supple with mild to moderate tender lymphadenopathy bilaterally. CARDIOVASCULAR: Regular rate and rhythm. RESPIRATORY: No accessory muscle use. Clear to auscultation. Breath sounds equal bilaterally. GASTROINTESTINAL: Abdomen soft, non-tender, nondistended. Hepatic and splenic margins not palpable. MUSCULOSKELETAL: Extremities without clubbing, cyanosis, or edema. No obvious deformities. NEUROLOGICAL: Awake and alert. No obvious cranial nerve deficits. Motor grossly within normal limits. Five out of 5 muscle strength in the arms and legs. Normal speech. PSYCHIATRIC: Appropriate mood and affect; insight and judgment normal. Data Data Last Documented VS Vital Signs Date Time Temp Pulse Resp B/P (MAP) Pulse Ox O2 Delivery O2 Flow Rate FiO2 11/23/17 08:37 101.8 101 16 118/69 (85) 99 Orders Orders Al-Mag Hy-Si 40-40-4 Mg/Ml Liq (Mag-Al P (11/23/17 09:00) Lidocaine 2% Viscous (Xylocaine 2% Visco (11/23/17 09:00) Prednisone (Deltasone) (11/23/17 09:00) Amoxicil-Clavulanate (Augmentin) (11/23/17 09:00) Acetaminophen (Tylenol) (11/23/17 09:00) MDM Medical Decision Making Medical Screen Exam Complete: Yes Emergency Medical Condition: Yes Differential Diagnosis Tonsillitis. Early tonsillar abscess. Pharyngitis. Narrative Course Patient is given 60 mg prednisone p.o. now. Patient is given a GI cocktail for pain control. Patient is given Augmentin 875 mg p.o. now. Patient is given acetaminophen 1000 mg p.o. now. Patient will be continued on Augmentin 875 twice daily for 10 days. Patient continued on prednisone 20 mg twice daily for 5 days. Patient is given Magic mouthwash as needed every 2 hours as needed. Diagnosis Primary Impression: Tonsillitis Patient Instructions: General Instructions, Tonsillitis (DC) Departure Forms: Work Release Enter return to work date: Nov 26, 2017 Additional Instructions: Patient is given 60 mg prednisone p.o. now. Patient is given a GI cocktail for pain control. Patient is given Augmentin 875 mg p.o. now. Patient is given acetaminophen 1000 mg p.o. now. Patient will be continued on Augmentin 875 twice daily for 10 days. Patient continued on prednisone 20 mg twice daily for 5 days. Patient is given Magic mouthwash as needed every 2 hours as needed. Med/Other Pt SpecificInfo: Prescription(s) given Scripts No Active Prescriptions or Reported Meds Disposition: 01 DISCHARGE HOME Condition: Stable Bg Cai Nov 23, 2017 09:05
[2017-11-23] MEDS ORDERED: PRED20 PO (09:06)
[2017-11-23] MEDS ORDERED: AUGM875T3 PO (09:06)
[2017-11-23] MEDS ORDERED: MAGICADU2 SWISH-SWAL (09:06)
== END 2017-11-23 09:28 | disposition home or self-care (01) ==
LOC: NEPD 08:36
DX: J03.90 Acute tonsillitis, unspecified (principal)
CPT/HCPCS: 99283; J7512